=== PATIENT | female | born 1950 | race Caucasian/White ===

== ENCOUNTER 2022-01-18 18:03 | Emergency (ER) | payer MEDICARE ==
[~2022-01-18] VITALS: Ht 167.6 cm; Wt 68.0 kg
[2022-01-18 18:22] VITALS: BP 168/95
== END 2022-01-19 01:09 | disposition left against medical advice (07) ==
LOC: ER 18:03
DX: Z53.21 Procedure and treatment not carried out due to patient leaving prior to being seen by health care provider (principal)